=== PATIENT | male | born 1985 | race Two or more races ===

== ENCOUNTER 2019-12-26 10:35 | Emergency (ER) | payer BC ==
[~2019-12-26] VITALS: Ht 177.8 cm; Wt 68.0 kg
--- NOTE | 2019-12-26 10:35 | NUR ---
PT BIB SELF C/O CHEST PRESSURE AND PALPITATIONS STARTED LAST NIGHT, PT IS AAOX4, NOT IN RESPIRATORY DISTRESS, HOOKED TO FRUIT PEELER, KEPT RESTED AND COMFORTABLE, WILL CONTINUE TO MONITOR.
--- NOTE | 2019-12-26 10:46 | NUR ---
TECH AT BEDSIDE FOR EKG.
--- NOTE | 2019-12-26 11:20 | NUR ---
IV LINE ESTABLISHED BLOOD DRAWN AND SENT TO LAB.
[2019-12-26 11:28] LABS: BASOPHILS % (AUTO) 0.6 % (0.0-2.0); HEMATOCRIT 44 % (39-51); HEMOGLOBIN 14.8 g/dL (13.5-17.5); LYMPHOCYTES % (AUTO) 14.4 % (20.0-44.0); MEAN CORPUSCULAR HGB CONC 34 g/dl (31.0-36.0); MEAN CORPUSCULAR VOLUME 91 fL (80-96); MONOCYTES # (AUTO) 0.4 /CMM (0.1-1.30); MONOCYTES % (AUTO) 5.1 % (2.0-12.0); NEUTROPHILS # (AUTO) 5.6 /CMM (1.8-8.9); NEUTROPHILS % (AUTO) 79.9 % (43.0-81.0); PLATELET COUNT (AUTO) 214 /CMM (150-450); WHITE BLOOD COUNT (AUTO) 7.1 K/uL (4.3-11.0)
[2019-12-26] MEDS ORDERED: IV NS 0.9% 1,000 ML BAG IV ONE (11:30)
--- NOTE | 2019-12-26 11:34 | NUR ---
transported to floor in stable condition.
[2019-12-26 11:43] LABS: ALBUMIN 4.4 g/dL (3.4-5.0); BILIRUBIN,DIRECT 0.3 mg/dL (0.0-0.2); BILIRUBIN,TOTAL 1.9 mg/dL (0.2-1.0); CREATININE 1.2 mg/dL (0.6-1.3); POTASSIUM 3.8 mmol/L (3.5-5.1); TOTAL PROTEIN, SERUM 7.5 g/dL (6.4-8.2)
--- NOTE | 2019-12-26 12:23 | NUR ---
IV removed. Catheter intact and site benign. Pressure and 4x4 applied to site. No bleeding noted. Patient discharged to home in stable condition. Written and verbal after care instructions given. Patient verbalizes understanding of instruction.
[2019-12-26 12:24] VITALS: BP 127/66
== END 2019-12-26 12:24 | disposition home or self-care (01) ==
LOC: ER 10:38
DX: R00.2 Palpitations (principal); T43.615A Adverse effect of caffeine, initial encounter; R19.7 Diarrhea, unspecified; Y92.89 Other specified places as the place of occurrence of the external cause
CPT/HCPCS: 36415; 80048; 80076; 83690; 84484; 85025; 93005 ×2; 96360; 99285; J7030

== ENCOUNTER 2024-09-24 10:58 | Emergency (ER) | payer BC ==
[~2024-09-24] VITALS: Ht 177.8 cm; Wt 69.4 kg
[2024-09-24 11:19] VITALS: BP 128/72; TEMP 98.5; O2SAT 100
== END 2024-09-24 11:30 | disposition home or self-care (01) ==
LOC: ER 11:03
DX: L72.3 Sebaceous cyst (principal)

== ENCOUNTER 2024-11-13 09:11 | Emergency (ER) | payer BC ==
[~2024-11-13] VITALS: Ht 177.8 cm; Wt 70.3 kg
[2024-11-13] MEDS ORDERED: ALBU18HF2 INH (10:31)
[2024-11-13 10:47] VITALS: BP 127/70; TEMP 98.6; O2SAT 98
== END 2024-11-13 10:48 | disposition home or self-care (01) ==
LOC: ER 09:11
DX: R05.9 Cough, unspecified (principal); R51.9 Headache, unspecified; M79.10 Myalgia, unspecified site; R07.9 Chest pain, unspecified
CPT/HCPCS: 71045-TC